=== PATIENT | male | born 1990 | race Caucasian/White ===

== ENCOUNTER 2018-02-15 08:13 | Emergency (ER) | payer OTHER ==
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
--- NOTE | 2018-02-15 09:07 | XR ---
EXAMINATION TYPE: XR foot complete LT , 3 VIEWS DATE OF EXAM ORDERED: 02/15/2018 HISTORY: Pain. COMPARISON: None. FINDINGS: There is a minimally displaced fracture through the epiphysis and proximal diaphysis of th e proximal phalanx of the fourth digit. This extends intra-articularly. IMPRESSION: MINIMALLY DISPLACED, INTRA-ARTICULAR FRACTURE OF THE APPENDICITIS AND PROXIMAL DIAPHYSIS OF THE PROXI MAL PHALANX OF THE LEFT FOURTH DIGIT. CODE A: INITIAL ASSESSMENT FOR CLOSED FRACTURE.
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
[2018-02-15] MEDS ORDERED: HYDROcodone/APAP 5-325MG 1 EACH TAB PO STA (10:59)
[2018-02-15 11:47] VITALS: BP 160/69; PULSE 95; RESP 17; TEMP 98.9
== END 2018-02-15 11:50 | disposition home or self-care (01) ==
LOC: EC 08:13
DX: S02.609A Fracture of mandible, unspecified, initial encounter for closed fracture (principal); S92.512A Displaced fracture of proximal phalanx of left lesser toe(s), initial encounter for closed fracture; S00.512A Abrasion of oral cavity, initial encounter; F17.200 Nicotine dependence, unspecified, uncomplicated; Z88.0 Allergy status to penicillin; Y04.0XXA Assault by unarmed brawl or fight, initial encounter; Y92.009 Unspecified place in unspecified non-institutional (private) residence as the place of occurrence of the external cause
CPT/HCPCS: 70486; 99284

== ENCOUNTER 2018-02-22 11:47 | Emergency (ER) | payer OTHER ==
[2018-02-22 12:01] VITALS: RESP 18; TEMP 97.9
[2018-02-22] MEDS ORDERED: SODIUM CHLORIDE 0.9% 1,000 ML IV STA (12:46)
[2018-02-22 13:07] LABS: Basophils % (A) 0 %; Eosinophils # (A) 0.6 k/uL (0-0.7); Eosinophils % (A) 5 %; HCT 46.1 % (39.0-53.0); Lymphocytes # (A) 1.9 k/uL (1.0-4.8); Lymphocytes % (A) 17 %; MCH 30.1 pg (25.0-35.0); MCHC 32.4 g/dL (31.0-37.0); Mean Platelet Volume 7.8; Monocytes # (A) 0.7 k/uL (0-1.0); Monocytes % (A) 6 %; Neutrophils # (A) 7.8 k/uL (1.3-7.7); Neutrophils % (A) 70 %; Platelet Count 271 k/uL (150-450); RBC 4.96 m/uL (4.30-5.90); RDW 12.4 % (11.5-15.5); WBC 11.1 k/uL (3.8-10.6)
[2018-02-22 13:15] LABS: ALT 54 U/L (21-72); AST 38 U/L (17-59); Albumin 4.4 g/dL (3.5-5.0); Alkaline Phosphatase 52 U/L (38-126); Anion Gap 11 mmol/L; Blood Urea Nitrogen 10 mg/dL (9-20); Calcium 9.8 mg/dL (8.4-10.2); Carbon Dioxide 26 mmol/L (22-30); Chloride 103 mmol/L (98-107); Glucose 111 mg/dL (74-99); Potassium 4.6 mmol/L (3.5-5.1); Sodium 140 mmol/L (137-145); Total Bilirubin 0.5 mg/dL (0.2-1.3); Total Protein 7.5 g/dL (6.3-8.2)
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
[2018-02-22 13:49] VITALS: BP 125/63; PULSE 69
--- NOTE | 2018-02-22 14:01 | CT ---
EXAMINATION TYPE: CT soft tissue neck w con DATE OF EXAM: 02/22/2018 1:35 PM COMPARISON: CT scan of the facial bones dated 02/15/2018. HISTORY: Post surgical infection CT DLP: 529.1 mGycm Automated exposure control for dose reduction was used. CONTRAST: CT scan of the neck is performed following with IV Contrast, patient injected with 100 mL of Isovue 3 00. Axial images are obtained, coronal and sagittal reformatted images are reviewed. FINDINGS: Fracture of the ramus of the mandible on the left has been reduced with the side plate and screws. These fracture of the mental tubercle of the mandible on the right is also been immobilized t he side plate and screws. There is a small amount of subcutaneous air adjacent to the fracture of the ramus on the left and this is associated with prominence of the adjacent masseter muscle. There is s ome associated soft tissue swelling adjacent to the mental tubercle on the right. There is also a sma ll amount of subcutaneous emphysema in this location. Visualized portions of the lungs are clear. Vertebral body height and alignment are maintained. Atlantoaxial relationships are normal. There is n o significant degenerative change. The parapharyngeal, oropharyngeal and laryngeal soft tissues are normal. The thyroid gland enhances homogeneously. The major salivary glands are unremarkable. There is mucosal thickening involving the right maxillary sinus. IMPRESSION: 1. Status post internal fixation of the patient's known mandibular fractures. 2. Minimal subcutaneous air adjacent to the fractures. Abnormal there is mild soft tissue swelling no definite abscess is seen.
[2018-02-22] MEDS ORDERED: MORPHINE SULFATE 4 MG/ML SYRINGE IV STA (14:35)
== END 2018-02-22 14:47 | disposition home or self-care (01) ==
LOC: EC 11:47
DX: S02.609A Fracture of mandible, unspecified, initial encounter for closed fracture (principal); F17.200 Nicotine dependence, unspecified, uncomplicated; Z98.890 Other specified postprocedural states; Z88.0 Allergy status to penicillin; X58.XXXA Exposure to other specified factors, initial encounter
CPT/HCPCS: 36415; 80053; 85025; 70491; 99284; 96374; 96361 ×2; J2270; Q9967

== ENCOUNTER → 2018-09-09 | Outpatient (CLI) | payer OTHER ==
[2018-09-09 09:49] LABS: HCT 46.3 % (39.0-53.0); HGB 15.1 gm/dL (13.0-17.5); MCH 30.1 pg (25.0-35.0); MCHC 32.5 g/dL (31.0-37.0); MCV 92.5 fL (80.0-100.0); Mean Platelet Volume 8.9; Platelet Count 203 k/uL (150-450); RDW 13.9 % (11.5-15.5); WBC 9.6 k/uL (3.8-10.6)
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
[2018-09-09 13:09] LABS: Erythrocyte Sedimentation Rate 7 mm/hr (0-15)
[2018-09-09 16:58] LABS: Albumin 4.6 g/dL (3.80-4.90); Albumin/Globulin Ratio 2.19 (1.60-3.17); Anion Gap 4.3 mmol/L (4.00-12.00); C Reactive Protein 0.8 mg/dL (0.0-0.8); Calcium 9.1 mg/dL (8.7-10.3); Carbon Dioxide 24.7 mmol/L (21.6-31.8); Globulin 2.1 g/dL (1.6-3.3); Potassium 4.1 mmol/L (3.5-5.5); Total Bilirubin 0.3 mg/dL (0.3-1.2); Total Protein 6.7 g/dL (6.2-8.2)
== END | disposition home or self-care (01) ==
LOC: LABWHC1 08:30
PROVIDERS: ATTEND Family Medicine
DX: R22.0 Localized swelling, mass and lump, head (principal); S01.80XA Unspecified open wound of other part of head, initial encounter
CPT/HCPCS: 36415; 70110; 80053; 84134; 85027; 85652; 86140

== ENCOUNTER 2023-04-08 23:35 | Emergency (ER) | payer OTHER ==
--- NOTE | 2023-04-09 00:59 | ED ---
Psych HPI - General Source: patient, RN notes reviewed Mode of arrival: ambulatory Limitations: no limitations <Magan Portillo - Last Filed: 04/09/23 00:58> <Toni Joseph - Last Filed: 04/09/23 18:24> - General Chief Complaint: Psychiatric Symptoms Stated Complaint: Mental Health Time Seen by Provider: 04/08/23 23:58 - History of Present Illness Initial Comments: 33-year-old male presents emergency Department chief complaints of needing psychiatric evaluation. Patient was brought by police after reportedly stated that he may comment about not wanting to live anymore. He states that he is not suicidal he states he was repeating symptoms and is quite certain the past. Denies being homicidal denies illicit drug use no cough abuse denies any other complaints. (Magan Portillo) - Related Data Home Medications Medication Instructions Recorded Confirmed No Known Home Medications 04/09/23 04/09/23 Allergies Allergy/AdvReac Type Severity Reaction Status Date / Time Penicillins Allergy Unknown Verified 04/09/23 10:14 Childhood Review of Systems ROS Other: All systems not noted in ROS Statement are negative. <Magan Portillo - Last Filed: 04/09/23 00:58> ROS Other: All systems not noted in ROS Statement are negative. <Toni Joseph - Last Filed: 04/09/23 18:24> ROS Statement: Those systems with pertinent positive or pertinent negative responses have been documented in the HPI. 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 History of Any Multi-Drug Resistant Organisms: None Reported Past Surgical History: Orthopedic Surgery Additional Past Surgical History / Comment(s): R hand, left leg and jaw Past Anesthesia/Blood Transfusion Reactions: No Reported Reaction Past Psychological History: No Psychological Hx Reported Smoking Status: Never smoker Past Alcohol Use History: Occasional Past Drug Use History: None Reported - Past Family History Mother Family Medical History: AFIB, Diabetes Mellitus <Magan Portillo - Last Filed: 04/09/23 00:58> General Exam Limitations: no limitations General appearance: alert, in no apparent distress Head exam: Present: atraumatic, normocephalic, normal inspection Eye exam: Present: normal appearance, PERRL, EOMI. Absent: scleral icterus, conjunctival injection, periorbital swelling ENT exam: Present: normal exam, mucous membranes moist Neck exam: Present: normal inspection, full ROM. Absent: tenderness, meningismus, lymphadenopathy Respiratory exam: Present: normal lung sounds bilaterally. Absent: respiratory distress, wheezes, rales, rhonchi, stridor Cardiovascular Exam: Present: regular rate, normal rhythm, normal heart sounds. Absent: systolic murmur, diastolic murmur, rubs, gallop, clicks GI/Abdominal exam: Present: soft, normal bowel sounds. Absent: distended, tenderness, guarding, rebound, rigid Neurological exam: Present: alert, oriented X3 Psychiatric exam: Present: normal affect, normal mood Skin exam: Present: warm, dry, intact, normal color. Absent: rash <Magan Portillo - Last Filed: 04/09/23 00:58> Course Vital Signs 04/08/23 23:50 Temperature 98.2 F Pulse Rate 84 Respiratory 17 Rate Blood Pressure 169/85 O2 Sat by Pulse 96 Oximetry Medical Decision Making <Toni Joseph - Last Filed: 04/09/23 18:24> - Medical Decision Making Was pt. sent in by a medical professional or institution (ELISEO Caro, DIRECT[employer] SOFTWARE DEVELOPMENT, urgent care, hospital, or snf...) When possible be specific @ -No Did you speak to anyone other than the patient for history (EMS, parent, family, police, friend...)? What history was obtained from this source @ -No Did you review nursing and triage notes (agree or disagree)? Why? @ -I reviewed and agree with nursing and triage notes Were old charts reviewed (outside hosp., previous admission, EMS record, old EKG, old radiological studies, urgent care reports/EKG's, snf records)? Report findings @ -No old charts were reviewed Differential Diagnosis (chest pain, altered mental status, abdominal pain women, abdominal pain men, vaginal bleeding, weakness, fever, dyspnea, syncope, headache, dizziness, GI bleed, back pain, seizure, CVA, palpatations, mental health, musculoskeletal)? @And the differential mental health. EKG interpreted by me (3pts min.). @ -As above X-rays interpreted by me (1pt min.). @ -None done CT interpreted by me (1pt min.). @ -None done U/S interpreted by me (1pt. min.). @ -None done What testing was considered but not performed or refused? (CT, X-rays, U/S, labs)? Why? @ -None What meds were considered but not given or refused? Why? @ -None Did you discuss the management of the patient with other professionals (professionals i.e. , PA, DIRECTOR SOFTWARE DEVELOPMENT, lab, RT, psych nurse, psychiatric social worker, skilled nursing professional, teacher, promotion officer, oil field caser)? Give summary @ -No Was smoking cessation discussed for >3mins.? @ -No Was critical care preformed (if so, how long)? @ -No Were there social determinants of health that impacted care today? How? (Homelessness, low income, unemployed, alcoholism, drug addiction, transportation, low edu. Level, literacy, decrease access to med. care, [place] [facility], rehab)? @ -No Was there de-escalation of care discussed even if they declined (Discuss DNR or withdrawal of care, Hospice)? DNR status @ -No What co-morbidities impacted this encounter? (DM, HTN, Smoking, COPD, CAD, Cancer, CVA, ARF, Chemo, Hep., AIDS, mental health diagnosis, sleep apnea, mor bid obesity)? @ -None Was patient admitted / discharged? Hospital course, mention meds given and route, prescriptions, significant lab abnormalities, going to OR and other pertinent info. @ -Patient evaluated by EPS and felt to be safe for discharge. Patient has signed a safety plan. Undiagnosed new problem with uncertain prognosis? @ -No Drug Therapy requiring intensive monitoring for toxicity (Heparin, Nitro, Insulin, Cardizem)? @ -No Were any procedures done? @ -No Diagnosis/symptom? @Depression, suicidal statements Acute, or Chronic, or Acute on Chronic? @acute Uncomplicated (without systemic symptoms) or Complicated (systemic symptoms)? @ -default Side effects of treatment? @ -No Exacerbation, Progression, or Severe Exacerbation? @ -No Poses a threat to life or bodily function? How? (Chest pain, [place], [place], pneumonia, PE, COPD, DKA, ARF, appy, cholecystitis, CVA, Diverticulitis, Homicidal, Suicidal, threat to staff... and all critical care pts) @ -Low risk at this time (Toni Joseph) - Lab Data Lab Results 04/09/23 Range/Units 12:11 Urine Opiates Screen Not Detected (NotDetected) Ur Oxycodone Screen Not Detected (NotDetected) Urine Methadone Screen Not Detected (NotDetected) Ur Propoxyphene Screen Not Detected (NotDetected) Ur Barbiturates Screen Not Detected (NotDetected) U Tricyclic Antidepress Not Detected (NotDetected) Ur Phencyclidine Scrn Not Detected (NotDetected) Ur Amphetamines Screen Not Detected (NotDetected) U Methamphetamines Scrn Not Detected (NotDetected) U Benzodiazepines Scrn Not Detected (NotDetected) Urine Cocaine Screen Not Detected (NotDetected) U Marijuana (THC) Screen Not Detected (NotDetected) Disposition <Magan Portillo - Last Filed: 04/09/23 00:58> Is patient prescribed a controlled substance at d/c from ED?: No Time of Disposition: 18:24 <Toni Joseph - Last Filed: 04/09/23 18:24> Clinical Impression: Depression Disposition: HOME SELF-CARE Condition: Fair Instructions (If sedation given, give patient instructions): Depression (ED) Additional Instructions: Follow-up with community mental health Referrals: Roslyn Rawls MD [Primary Care Provider] - 1-2 days
[2023-04-09 12:49] LABS: Amphetamine Screen,Urine Not Detected (NotDetected); Barbiturate Screen,Urine Not Detected (NotDetected); Benzodiazepines Screen,Urine Not Detected (NotDetected); Cocaine Screen,Urine Not Detected (NotDetected); Methadone Screen, Urine Not Detected (NotDetected); Opiate Screen,Urine Not Detected (NotDetected); Oxycodone Screen, Urine Not Detected (NotDetected); Phencyclidine Screen,Urine Not Detected (NotDetected); Tricyclic Antidepressant,Urine Not Detected (NotDetected); Urn Cannabinoid Scrn Not Detected (NotDetected)
[2023-04-09 18:56] VITALS: BP 147/81; PULSE 68; RESP 18; TEMP 98.4
== END 2023-04-09 18:45 | disposition home or self-care (01) ==
LOC: EC 23:35
DX: F32.A Depression, unspecified (principal); I10 Essential (primary) hypertension; Z88.0 Allergy status to penicillin
CPT/HCPCS: 80306; 82075; 99285